=== PATIENT | male | born 1960 ===

== ENCOUNTER 2021-12-11 05:59 | Day surgery (SDC) | payer OTHER | END 2021-12-11 14:35 | disposition home or self-care (01) | LOC: AMB-ENDOS 05:59 | PROVIDERS: ATTEND Colon & Rectal Surgery | DX: C20 Malignant neoplasm of rectum (principal); Z86.010 Personal history of colon polyps; E78.5 Hyperlipidemia, unspecified ==

== ENCOUNTER 2022-01-02 11:15 | Inpatient (IN) | payer OTHER ==
[~2022-01-02] VITALS: Ht 167.6 cm; Wt 86.2 kg
[2022-01-02] MEDS ORDERED: PANTOPRAZOLE SO40 M2 PO (15:13)
[2022-01-02] MEDS ORDERED: INDERA PO (15:13)
[2022-01-07] MEDS ORDERED: PROPRANOLOL HCL60 MG (11:14)
[2022-01-07] MEDS ORDERED: EZETIMIBE-SIMV1 EAC1 (11:14)
== END 2022-01-08 15:15 | disposition home or self-care (01) | DRG 376 ==
LOC: O/R 01-07 06:10 → SURG 01-07 06:10 → SURH 01-07 09:15 → SURG 01-07 10:30 → SURH 01-07 11:15 → SURG 01-08 15:15
PROVIDERS: ADMIT Colon & Rectal Surgery; ATTEND Colon & Rectal Surgery
PROC: 0DBP8ZZ Excision of Rectum, Via Natural or Artificial Opening Endoscopic (ICD-10-PCS; 2022-01-07)
PROC: 0DBP8ZZ Excision of Rectum, Via Natural or Artificial Opening Endoscopic (ICD-10-PCS; principal; 2022-01-07 09:15)
DX: C20 Malignant neoplasm of rectum (principal); Z20.822 Contact with and (suspected) exposure to COVID-19